=== PATIENT | male | born 1965 | race Caucasian/White ===

== ENCOUNTER 2018-12-26 10:27 | Emergency (ER) | payer MEDICARE, MEDICAID ==
[~2018-12-26] VITALS: Ht 162.6 cm; Wt 59.0 kg
[2018-12-26 11:42] LABS: Basophils # (auto) 0 uL; Basophils % (auto) 0.5 % (0.0-2.0); Eosinophils # (auto) 0 uL; Eosinophils % (auto) 0.9 % (0.0-7.0); Hematocrit 33.9 % (41.0-53.0); Hemoglobin 11.4 g/dL (13.5-17.5); Lymphocytes # (auto) 1.8 uL; Mean Corpuscular Hemoglobin 30.5 pg (28.0-32.0); Mean Corpuscular Hgb Conc. 33.6 g/dL (32.0-36.0); Mean Corpuscular Volume 90.7 fL (80.0-100.0); Monocytes # (auto) 0.4 uL; Monocytes % (auto) 7.8 % (0.0-12.0); Neutrophils # (auto) 2.4 uL; Neutrophils % (auto) 51.8 % (37.0-80.0); Nucleated Red Blood Cells % 0.1 %; Platelet Count (auto) 281 10^3/uL (140-450); Red Blood Cells 3.73 10^6/uL (4.5-5.90); Red Cell Distribution Width 16.8 % (11.8-14.3); White Blood Cell 4.6 10^3/uL (4.4-10.8)
[2018-12-26 11:43] LABS: Albumin 3.2 g/dL (3.4-5.0); Anion Gap 8 (5-15); Blood Urea Nitrogen 18 mg/dL (7-18); Calcium 8.2 mg/dL (8.5-10.1); Carbon Dioxide 26 mmol/L (21-32); Chloride 110 mmol/L (98-107); Glucose 88 mg/dL (74-106); Magnesium 2.2 mg/dL (1.6-2.6); Potassium 3.5 mmol/L (3.5-5.1); Sodium 144 mmol/L (136-145)
[2018-12-26 11:48] LABS: Alanine Aminotransferase 17 U/L (16-61); Alkaline Phosphatase 140 U/L (45-117); Aspartate Aminotransferase 19 U/L (15-37); BUN/Creatinine Ratio 24.7; Bilirubin, Total 0.2 mg/dL (0.2-1.0); GFR African American 144 mL/min; GFR Non-African American 119 mL/min; Total Protein 7.3 g/dL (6.4-8.2)
[2018-12-26 12:54] VITALS: BP 132/77
== END 2018-12-26 18:15 | disposition home or self-care (01) ==
LOC: EDBD 10:27 → ER 10:27
DX: I95.9 Hypotension, unspecified (principal); J44.9 Chronic obstructive pulmonary disease, unspecified; I10 Essential (primary) hypertension; Z90.49 Acquired absence of other specified parts of digestive tract
CPT/HCPCS: 36415; 70450; 80053; 83735; 84484; 85025; 94761

== ENCOUNTER 2020-01-21 05:12 | Inpatient (IN) | payer MEDICARE, MEDICAID ==
[~2020-01-21] VITALS: Ht 162.6 cm; Wt 62.0 kg
[2020-01-21 06:51] LABS: Basophils # (auto) 0.1 10 ^3/uL (0-0.2); Basophils % (auto) 0.5 % (0.0-2.0); Eosinophils # (auto) 0.1 10 ^3/uL (0-0.8); Monocytes # (auto) 0.7 10 ^3/uL (0-1.3); Monocytes % (auto) 5.8 % (0.0-12.0)
[2020-01-21 06:52] LABS: Eosinophils % (auto) 0.4 % (0.0-7.0); Hematocrit 36.6 % (41.0-53.0); Hemoglobin 12.3 g/dL (13.5-17.5); Lymphocytes % (auto) 24.1 % (10.0-50.0); Mean Corpuscular Hemoglobin 32.1 pg (28.0-32.0); Mean Corpuscular Hgb Conc. 33.5 g/dL (32.0-36.0); Mean Corpuscular Volume 95.7 fL (80.0-100.0); Neutrophils # (auto) 8.6 10 ^3/uL (1.6-8.6); Neutrophils % (auto) 69.2 % (37.0-80.0); Platelet Count (auto) 498 10^3/uL (140-450); Red Blood Cells 3.83 10^6/uL (4.5-5.90); Red Cell Distribution Width 14.7 % (11.8-14.3); White Blood Cell 12.5 10^3/uL (4.4-10.8)
[2020-01-21 07:15] LABS: Albumin 3.1 g/dL (3.4-5.0); Amylase 54 U/L (25-115); Anion Gap 5 (5-15); Blood Urea Nitrogen 24 mg/dL (7-18); Calcium 8.4 mg/dL (8.5-10.1); Carbon Dioxide 27 mmol/L (21-32); Chloride 105 mmol/L (98-107); Glucose 108 mg/dL (74-106); Lipase 81 U/L (73-393); Sodium 137 mmol/L (136-145)
[2020-01-21 07:21] LABS: Alanine Aminotransferase 18 U/L (16-61); Alkaline Phosphatase 103 U/L (45-117); Aspartate Aminotransferase 16 U/L (15-37); BUN/Creatinine Ratio 31.6; Bilirubin, Total 0.5 mg/dL (0.2-1.0); GFR African American 137 mL/min; GFR Non-African American 113 mL/min; Total Protein 7.5 g/dL (6.4-8.2)
[2020-01-21] MEDS ORDERED: cefTRIAXone 1GM/50ML D5W 50 ML IV ONE (11:00)
[2020-01-21 11:32] LABS: Urine Bacteria FEW /hpf (None Seen); Urine Blood 2+ /uL (Negative); Urine Mucus FEW (None Seen); Urine Specific Gravity 1.014 (1.001-1.035); Urine WBC 234 /hpf (0 - 3); Urine WBC Clumps PRESENT /hpf (None Seen)
[2020-01-21] MEDS ORDERED: ACETAMINOPHEN 500 MG TAB PO PRN (12:15)
[2020-01-21] MEDS ORDERED: NITROGLYCERIN 0.4 MG SL TAB SL PRN (12:15)
[2020-01-21] MEDS ORDERED: ALPRAZolam 0.25 MG TAB PO PRN (12:15)
[2020-01-21] MEDS ORDERED: MORPHINE SULF INJ 2 MG/ML SYRINGE 1ML IV PRN (12:15)
[2020-01-21] MEDS ORDERED: HYDROcodone-ACET 5/325MG TAB PO PRN (12:15)
[2020-01-21] MEDS: SODIUM CHLORIDE 0.9% 1,000 ML IV SCH (12:23)
[2020-01-21 12:40] LABS: Alcohol, Urine < 3.0 mg/dL (0-10); Amphetamine Screen, Urine NEGATIVE (NEGATIVE); Barbiturate Scree,Urine NEGATIVE (NEGATIVE); Benzodiazephine Screen, Urine NEGATIVE (NEGATIVE); Cannabinoid Screen, Urine NEGATIVE (NEGATIVE); Cocaine Screen, Urine NEGATIVE (NEGATIVE); Opiate Scree,Urine NEGATIVE (NEGATIVE); Phencyclidine Screen, Urine NEGATIVE (NEGATIVE)
[2020-01-21] MEDS: ONDANSETRON HCL 4 MG/2 ML VIAL IV PRN ×2 (13:37→19:57)
--- NOTE | 2020-01-21 18:23 | NUR ---
MS admit from [facility] admitted to tele/MS after SBAR received. Patient oriented to ROBBIE AMBRIZ RN primary RN, TELE unit, room 274, bed A, and unit policies regarding patient care and visiting hours. Patient weighed by bedscale and encouraged to call if they need something. All questions and concerns addressed, patient verbalized understanding.
[2020-01-21] MEDS ORDERED: ALPR1TAB7 (18:55)
[2020-01-21] MEDS ORDERED: BUPR2SUB (18:55)
[2020-01-21] MEDS: PIPERACILLIN-TAZOB 3.375GM 100 ML IV SCH (18:58)
[2020-01-21] MEDS ORDERED: PNEUMOCOCCAL VACC POLYS 25 MCG/0.5 ML VIAL IM ONE (19:00)
--- NOTE | 2020-01-21 19:09 | NUR ---
CARE ENDORSED TO ALE SYED.
--- NOTE | 2020-01-21 20:00 | NUR ---
open note assumed care of pt. upon entering room pt sitting at bedside awake, alert and oriented x4. room air no distress noted or expressed. pt denied any pain. pt updated on plan of care. pt reports having "chronic nausea", requesting medication, this nurse to admin meds per MD and MAR. pt bed locked, low and 2x rails up. call light in reach. this nurse to round q1hr and prn. pt has chronic urostomy which he cares for.
[2020-01-21 22:00] VITALS: BP 146/87
[2020-01-22] MEDS: PIPERACILLIN-TAZOB 3.375GM 100 ML IV SCH ×4 (03:34→17:52)
[2020-01-22 05:00] VITALS: BP 113/69
[2020-01-22] MEDS: SODIUM CHLORIDE 0.9% 1,000 ML IV SCH ×2 (05:06→21:29)
[2020-01-22 06:14] LABS: Basophils # (auto) 0.1 10 ^3/uL (0-0.2); Basophils % (auto) 0.6 % (0.0-2.0); Eosinophils # (auto) 0.1 10 ^3/uL (0-0.8); Eosinophils % (auto) 0.9 % (0.0-7.0); Hematocrit 41.8 % (41.0-53.0); Hemoglobin 13.9 g/dL (13.5-17.5); Lymphocytes # (auto) 3.5 10 ^3/uL (0.4-5.4); Lymphocytes % (auto) 33.7 % (10.0-50.0); Mean Corpuscular Hemoglobin 32.1 pg (28.0-32.0); Mean Corpuscular Hgb Conc. 33.3 g/dL (32.0-36.0); Mean Corpuscular Volume 96.3 fL (80.0-100.0); Monocytes # (auto) 0.6 10 ^3/uL (0-1.3); Monocytes % (auto) 6.2 % (0.0-12.0); Neutrophils # (auto) 6.1 10 ^3/uL (1.6-8.6); Neutrophils % (auto) 58.6 % (37.0-80.0); Platelet Count (auto) 444 10^3/uL (140-450); Red Blood Cells 4.34 10^6/uL (4.5-5.90); Red Cell Distribution Width 14.9 % (11.8-14.3); White Blood Cell 10.4 10^3/uL (4.4-10.8)
[2020-01-22 06:35] LABS: Potassium 4.5 mmol/L (3.5-5.1)
[2020-01-22] MEDS: ONDANSETRON HCL 4 MG/2 ML VIAL IV PRN ×3 (06:37→21:45)
[2020-01-22 06:50] LABS: BUN/Creatinine Ratio 26.8; Calcium 8.5 mg/dL (8.5-10.1)
--- NOTE | 2020-01-22 07:30 | NUR ---
Opening Shift Note RECEIVED REPORT FROM NOC RN. Assumed care of patient, awake and alert. No S/S of distress/SOB or pain. BED IN LOWEST, LOCKED POSITION WITH SIDERAILS UP x2 AND CALL LIGHT WITHIN REACH. Instructed on POC and to call for assist PRN, will continue to monitor for changes Q1hr and PRN.
[2020-01-22 09:23] VITALS: BP 123/91
--- NOTE | 2020-01-22 10:00 | NUR ---
IV removal IV DC'd with clean sterile technique, catheter fully intact. Pressure dressing applied to site. Patient tolerated well. NOTE: PATIENT HAD DISLODGED IV TO RIGHT WRIST/HAND.
[2020-01-22 10:13] LABS: INR 1.01 (0.9-1.15)
[2020-01-22] MEDS: FAMOTIDINE 20 MG TAB PO SCH (10:26)
--- NOTE | 2020-01-22 11:23 | NUR ---
MIDLINE ORDERED BY DR. ROBERTS.
--- NOTE | 2020-01-22 11:25 | NUR ---
ENGINE DYNAMOMETER TESTER ADVISED OF MIDLINE ORDER BY CHARGE NURSE CARL.
[2020-01-22 13:00] VITALS: BP 126/80
--- NOTE | 2020-01-22 14:49 | NUR ---
ATTEMPTED TO CALL PICC LINE NURSE REGARDING MIDLINE PLACEMENT. NO ANSWER.
[2020-01-22 16:52] VITALS: BP 120/74
[2020-01-22] MEDS: MORPHINE SULF INJ 2 MG/ML SYRINGE 1ML IV PRN ×2 (17:53→21:45)
--- NOTE | 2020-01-22 19:30 | NUR ---
Opening Shift Note Assumed care of patient. Patient is awake and alert. No S/S of distress/SOB or pain. Instructed on POC and to call for assist PRN, will continue to monitor for changes Q1hr and PRN. Bed locked in lowest position and bed rails up x2. Call light within reach. Addendum: 01/23/20 at 0056 by DESTINY ARITA RN Urostomy present. Clean, dry, intact, closed system free of kinks and below level of bladder
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
[2020-01-22 22:00] VITALS: BP 129/83
[2020-01-23] MEDS: PIPERACILLIN-TAZOB 3.375GM 100 ML IV SCH ×3 (00:47→12:13)
[2020-01-23 05:00] VITALS: BP 106/76
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
--- NOTE | 2020-01-23 07:30 | NUR ---
Opening Shift Note RECEIVED REPORT FROM NOC RN. Assumed care of patient, awake and alert. No S/S of distress/SOB or pain. BED IN LOWEST, LOCKED POSITION WITH SIDE RAILS UP x2 AND CALL LIGHT WITHIN REACH. Instructed on POC,to keep NPO for expected procedure,call light within reach patient reminded instructed to call for assistance.patient verbalized understanding.will continue to monitor for changes Q1hr and PRN.
[2020-01-23 08:48] VITALS: BP 114/76
--- NOTE | 2020-01-23 08:50 | NUR ---
Patient transported to [facility] via bed,for Nephrostomy Tube insertion.
[2020-01-23] MEDS ORDERED: LIDOCAINE 2%HCL (LOCAL ANESTH.) INJ 20ML MDV ONE (09:19)
[2020-01-23] MEDS ORDERED: IODIXANOL 320MG/ML 100ML BTL IV ONE (09:19)
[2020-01-23] MEDS ORDERED: fentaNYL CITRATE 100 MCG/2 ML VL ONE (09:20)
[2020-01-23] MEDS ORDERED: MIDAZOLAM HCL 1MG/1ML-2 ML VIAL ONE (09:20)
[2020-01-23] MEDS ORDERED: ONDANSETRON HCL 4 MG/2 ML VIAL ONE (09:28)
[2020-01-23] MEDS ORDERED: diphenhdrAMINE HCL 50 MG/1 ML VL ONE (09:29)
[2020-01-23] MEDS ORDERED: HYDROmorphone HCL 2 MG/ML VL ONE (09:47)
--- NOTE | 2020-01-23 11:30 | NUR ---
RECEIVED REPORT FROM JAYLIN MIXER CRANE OPERATOR RE PATIENT STATUS AND PLAN OF CARE
--- NOTE | 2020-01-23 11:55 | NUR ---
RECEIVED FROM PACU VIA BED AWAKE ALERT ORIENTED NO DISTRESS,NO DISCOMFORT.RIGHT NEPHROSTOMY TUBE TO RIGHT LOWER BACK IN PLACE,DRAINING BRIGHT TINGE BLOODY URINE DRAINAGE ,CATHETER ANCHORED AND DRESSING CLEAN DRY INTACT. PATIENT INSTRUCTED TO REMAIN IN BED REST,NO C/O PAIN NO DISCOMFORT.VITAL SIGNS TAKEN HR 83,RR18,BP 146/97,O2 SAT ON ROOM AIR 95%
[2020-01-23] MEDS: FAMOTIDINE 20 MG TAB PO SCH (12:11)
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
--- NOTE | 2020-01-23 13:08 | NUR ---
PATIENT REFUSED TO SIGN LEAVING THE HOSPITAL AGAINST MEDICAL ADVICE OR TREATMENT,EXPLAIN ABOUT THE RISK AND CONSEQUENCES INVOLVED IN LEAVING THE HOSPITAL A T THIS TIME,THE BENEFITS OF CONTINUED TREATMENT AND HOSPITALIZATION,PATIENT STATED AND CONTINUES TO BE DELUSIONAL "I'M LEAVING,GOD WILL REMOVED THE BLOOD,I'M AN KELVIN" PATIENT LEFT AMBULATORY WITH BELONGINGS, AGAINST MEDICAL ADVICE.
--- NOTE | 2020-01-23 13:10 | NUR ---
DR. ROBERTS PAGED AND INFORMED PATIENT BEING DELUSIONAL,ARGUMENTATIVE,REFUSING TO SIGN AMA FORM AND LEFT AGAINST MEDICAL ADVICE.
[2020-01-23] MEDS ORDERED: HALOPERIDOL LACTATE 5 MG/ML INJ VIAL IM PRN (13:15)
--- NOTE | 2020-01-23 13:30 | NUR ---
Patient Left AMA prior to assessment.
== END 2020-01-23 13:00 | disposition left against medical advice (07) | DRG 690 ==
LOC: ER 05:12 → TELE 05:13 → TELE-WESTW 18:15
PROVIDERS: ADMIT Nurse Practitioner Acute Care; ATTEND Internal Medicine
PROC: 0T9030Z Drainage of Right Kidney with Drainage Device, Percutaneous Approach (ICD-10-PCS; principal; 2020-01-23)
DX: N13.6 Pyonephrosis (principal); E44.1 Mild protein-calorie malnutrition; F17.200 Nicotine dependence, unspecified, uncomplicated; G89.29 Other chronic pain; J44.9 Chronic obstructive pulmonary disease, unspecified; R56.9 Unspecified convulsions; Z53.29 Procedure and treatment not carried out because of patient's decision for other reasons; Z95.810 Presence of automatic (implantable) cardiac defibrillator; Z88.6 Allergy status to analgesic agent; Z88.8 Allergy status to other drugs, medicaments and biological substances; Z90.49 Acquired absence of other specified parts of digestive tract; Z59.0 Homelessness; I50.9 Heart failure, unspecified; I11.0 Hypertensive heart disease with heart failure
CPT/HCPCS: 36415; 50432; 71045; 74176; 74425; 76000; 76942; 80048; 80053; 80307; 81001; 82150; 83690; 83880; 84484; 85025; 85610; 87040; 87086; 87088; 87186; 93005; 99152; 99153; C1729; G0378; J0696; J2250; J2405; J2543; Q9967

== ENCOUNTER 2020-01-23 17:18 | Emergency (ER) | payer MEDICARE, MEDICAID ==
[~2020-01-23] VITALS: Ht 162.6 cm; Wt 63.5 kg
[~2020-01-23 17:18] MED LIST: ALPR1TAB7; BUPR2SUB
[2020-01-23 18:07] VITALS: BP 112/85
== END 2020-01-23 19:45 | disposition left against medical advice (07) ==
LOC: ER 17:18
DX: R51 Headache (principal); Z53.21 Procedure and treatment not carried out due to patient leaving prior to being seen by health care provider

== ENCOUNTER → 2020-01-30 | Emergency (ER) | payer MEDICARE, MEDICAID ==
[~2020-01-30] VITALS: Ht 177.8 cm; Wt 63.5 kg
[2020-01-30 08:28] VITALS: BP 128/79
[2020-01-30 08:29] LABS: Basophils # (auto) 0 10 ^3/uL (0-0.2); Basophils % (auto) 0.5 % (0.0-2.0); Eosinophils # (auto) 0.1 10 ^3/uL (0-0.8); Hematocrit 33.3 % (41.0-53.0); Lymphocytes # (auto) 2.8 10 ^3/uL (0.4-5.4); Lymphocytes % (auto) 37.4 % (10.0-50.0); Mean Corpuscular Hemoglobin 31.9 pg (28.0-32.0); Mean Corpuscular Hgb Conc. 33.1 g/dL (32.0-36.0); Mean Corpuscular Volume 96.6 fL (80.0-100.0); Monocytes # (auto) 0.4 10 ^3/uL (0-1.3); Monocytes % (auto) 5.7 % (0.0-12.0); Neutrophils # (auto) 4.2 10 ^3/uL (1.6-8.6); Neutrophils % (auto) 55.4 % (37.0-80.0); Nucleated Red Blood Cells % 0.1 %; Platelet Count (auto) 331 10^3/uL (140-450); Red Blood Cells 3.45 10^6/uL (4.5-5.90); Red Cell Distribution Width 14.7 % (11.8-14.3); White Blood Cell 7.6 10^3/uL (4.4-10.8)
[2020-01-30 08:46] LABS: Albumin 2.9 g/dL (3.4-5.0); Anion Gap 7 (5-15); Blood Alcohol < 3.0 mg/dL (0-5); Blood Urea Nitrogen 20 mg/dL (7-18); Carbon Dioxide 27 mmol/L (21-32); Chloride 105 mmol/L (98-107); Glucose 98 mg/dL (74-106); Potassium 4.2 mmol/L (3.5-5.1); Sodium 139 mmol/L (136-145)
[2020-01-30 08:49] LABS: Alanine Aminotransferase 17 U/L (16-61); Alkaline Phosphatase 78 U/L (45-117); Aspartate Aminotransferase 19 U/L (15-37); BUN/Creatinine Ratio 20.8; Bilirubin, Total 0.2 mg/dL (0.2-1.0); GFR African American 105 mL/min; GFR Non-African American 86 mL/min; Total Protein 7.2 g/dL (6.4-8.2)
[2020-01-30 08:51] LABS: Salicylate < 1.7 mg/dL (2.8-20.0)
[2020-01-30 09:23] LABS: Acetaminophen < 2.0 ug/mL (10-30)
== END | disposition left against medical advice (07) ==
LOC: EDUNIT# 07:58 → EDBD 08:07 → ER 08:07
DX: R45.851 Suicidal ideations (principal); R42 Dizziness and giddiness; J44.9 Chronic obstructive pulmonary disease, unspecified; I10 Essential (primary) hypertension; Z88.6 Allergy status to analgesic agent; Z90.49 Acquired absence of other specified parts of digestive tract; Z95.0 Presence of cardiac pacemaker
CPT/HCPCS: 36415; 71045; 80053; 80320; 80329; 85025

== ENCOUNTER → 2020-02-03 | Emergency (ER) | payer MEDICARE, MEDICAID ==
[~2020-02-03] VITALS: Ht 172.7 cm; Wt 68.0 kg
[2020-02-03 06:49] VITALS: BP 142/85
[2020-02-03 07:28] LABS: Basophils # (auto) 0.1 10 ^3/uL (0-0.2); Basophils % (auto) 0.9 % (0.0-2.0); Eosinophils # (auto) 0.2 10 ^3/uL (0-0.8); Eosinophils % (auto) 2.2 % (0.0-7.0); Hematocrit 33.7 % (41.0-53.0); Hemoglobin 11.2 g/dL (13.5-17.5); Lymphocytes # (auto) 2.6 10 ^3/uL (0.4-5.4); Lymphocytes % (auto) 38.1 % (10.0-50.0); Mean Corpuscular Hemoglobin 32.6 pg (28.0-32.0); Mean Corpuscular Hgb Conc. 33.4 g/dL (32.0-36.0); Mean Corpuscular Volume 97.5 fL (80.0-100.0); Monocytes # (auto) 0.3 10 ^3/uL (0-1.3); Monocytes % (auto) 5.1 % (0.0-12.0); Neutrophils # (auto) 3.6 10 ^3/uL (1.6-8.6); Neutrophils % (auto) 53.7 % (37.0-80.0); Nucleated Red Blood Cells % 0.1 %; Platelet Count (auto) 394 10^3/uL (140-450); Red Blood Cells 3.45 10^6/uL (4.5-5.90); Red Cell Distribution Width 15.2 % (11.8-14.3); White Blood Cell 6.8 10^3/uL (4.4-10.8)
[2020-02-03 07:49] LABS: Acetaminophen < 2.0 ug/mL (10-30); Salicylate < 1.7 mg/dL (2.8-20.0)
[2020-02-03 07:50] LABS: Alanine Aminotransferase 20 U/L (16-61); Albumin 2.9 g/dL (3.4-5.0); Anion Gap 2 (5-15); Aspartate Aminotransferase 22 U/L (15-37); BUN/Creatinine Ratio 20.8; Blood Urea Nitrogen 15 mg/dL (7-18); Carbon Dioxide 28 mmol/L (21-32); Chloride 110 mmol/L (98-107); GFR African American 146 mL/min; GFR Non-African American 120 mL/min; Glucose 91 mg/dL (74-106); Potassium 3.7 mmol/L (3.5-5.1); Sodium 140 mmol/L (136-145)
[2020-02-03 07:52] LABS: Alkaline Phosphatase 89 U/L (45-117); Bilirubin, Total 0.2 mg/dL (0.2-1.0)
[2020-02-03 07:54] LABS: Blood Alcohol < 3.0 mg/dL (0-5)
[2020-02-03 08:35] LABS: Urine Bacteria FEW /hpf (None Seen); Urine Blood 2+ /uL (Negative); Urine Specific Gravity 1.015 (1.001-1.035); Urine WBC 136 /hpf (0 - 3)
[2020-02-03 08:44] LABS: Barbiturate Scree,Urine NEGATIVE (NEGATIVE); Benzodiazephine Screen, Urine NEGATIVE (NEGATIVE); Cannabinoid Screen, Urine NEGATIVE (NEGATIVE); Cocaine Screen, Urine NEGATIVE (NEGATIVE); Opiate Scree,Urine NEGATIVE (NEGATIVE); Phencyclidine Screen, Urine NEGATIVE (NEGATIVE)
[2020-02-03 08:50] LABS: Amphetamine Screen, Urine NEGATIVE (NEGATIVE)
[2020-02-03 08:55] LABS: Alcohol, Urine < 3.0 mg/dL (0-10)
== END | disposition home or self-care (01) ==
LOC: ER 02:18
DX: R45.851 Suicidal ideations (principal); F41.9 Anxiety disorder, unspecified; J44.9 Chronic obstructive pulmonary disease, unspecified; I10 Essential (primary) hypertension
CPT/HCPCS: 36415; 71045; 80053; 80307; 80320; 80329; 81001; 85025

== ENCOUNTER 2021-10-07 10:17 | Outpatient (CLI) | payer MEDICARE, MEDICAID ==
[~2021-10-07] VITALS: Ht 162.6 cm; Wt 59.0 kg
[2021-10-07 11:08] LABS: Urine Bacteria NONE SEEN /hpf (None Seen); Urine Blood Negative /uL (Negative); Urine Specific Gravity 1.014 (1.001-1.035); Urine WBC 123 /hpf (0 - 3)
[2021-10-07 11:27] LABS: Albumin 3.8 g/dL (3.4-5.0); Calcium 8.9 mg/dL (8.5-10.1); Potassium 4.5 mmol/L (3.5-5.1)
[2021-10-07 11:30] LABS: Basophils # (auto) 0 10 ^3/uL (0-0.2); Basophils % (auto) 0.5 % (0.0-2.0); Eosinophils # (auto) 0.2 10 ^3/uL (0-0.8); Eosinophils % (auto) 2.4 % (0.0-7.0); Hematocrit 39.9 % (41.0-53.0); Hemoglobin 13.3 g/dL (13.5-17.5); Lymphocytes # (auto) 1.8 10 ^3/uL (0.4-5.4); Mean Corpuscular Hemoglobin 32.8 pg (28.0-32.0); Mean Corpuscular Hgb Conc. 33.4 g/dL (32.0-36.0); Mean Corpuscular Volume 98.2 fL (80.0-100.0); Monocytes # (auto) 0.5 10 ^3/uL (0-1.3); Monocytes % (auto) 6.2 % (0.0-12.0); Neutrophils # (auto) 4.9 10 ^3/uL (1.6-8.6); Neutrophils % (auto) 65.9 % (37.0-80.0); Nucleated Red Blood Cells % 0.2 %; Red Blood Cells 4.06 10^6/uL (4.5-5.90); Red Cell Distribution Width 13.4 % (11.8-14.3); White Blood Cell 7.4 10^3/uL (4.4-10.8)
[2021-10-07 11:31] LABS: BUN/Creatinine Ratio 19.6; Bilirubin, Total 0.2 mg/dL (0.2-1.0); Total Protein 7.6 g/dL (6.4-8.2)
[2021-10-08] MEDS ORDERED: MORP15TA PO (16:02)
[2021-10-08] MEDS ORDERED: ZOLP10TA PO (16:03)
[2021-10-08] MEDS ORDERED: METH100I IJ (16:03)
[2021-10-08] MEDS ORDERED: SERT50TA PO (16:03)
[2021-10-08] MEDS ORDERED: SOTA80TA PO (16:03)
[2021-10-08] MEDS ORDERED: PROC10TA2 PO (16:03)
[2021-10-08] MEDS ORDERED: CHLO100T4 PO (16:03)
[2021-10-08] MEDS ORDERED: LINA1CAP2 PO (16:03)
[2021-10-08] MEDS ORDERED: CARB200T PO (16:03)
[2021-10-08] MEDS ORDERED: MELO1TAB56 PO (16:03)
[2021-10-08] MEDS ORDERED: PANT40TA2 PO (16:03)
[2021-10-08] MEDS ORDERED: ALPR0.5T PO (16:03)
[2021-10-08] MEDS ORDERED: LEVO25TA49 PO (16:03)
[2021-10-08] MEDS ORDERED: PRAZ2CAP PO (16:03)
[2021-10-08] MEDS ORDERED: ONDA-144 PO (16:03)
[2021-10-08] MEDS ORDERED: METH750T22 PO (16:03)
[2021-11-03] MEDS ORDERED: FLUT1AER3 IN (10:33)
[2021-11-03] MEDS ORDERED: ASPI1TAB20 PO (10:33)
[2021-11-03] MEDS ORDERED: PROM25TA5 PO (10:33)
== END 2021-10-07 13:17 | disposition home or self-care (01) ==
LOC: LAB 10:17 → EDSTATUS 10-09 12:15
PROVIDERS: ATTEND Internal Medicine Gastroenterology
DX: Z01.812 Encounter for preprocedural laboratory examination (principal); K92.1 Melena; R11.2 Nausea with vomiting, unspecified; Z20.822 Contact with and (suspected) exposure to COVID-19; Z80.0 Family history of malignant neoplasm of digestive organs; I10 Essential (primary) hypertension; Z95.0 Presence of cardiac pacemaker; F17.200 Nicotine dependence, unspecified, uncomplicated; K21.9 Gastro-esophageal reflux disease without esophagitis; K44.9 Diaphragmatic hernia without obstruction or gangrene; E03.9 Hypothyroidism, unspecified; F41.9 Anxiety disorder, unspecified
CPT/HCPCS: 36415; 80053; 81001; 85025; U0003

== ENCOUNTER → 2021-11-06 | Day surgery (SDC) | payer MEDICARE, MEDICAID ==
[2021-11-03 11:02] LABS: Basophils # (auto) 0 10 ^3/uL (0-0.2); Basophils % (auto) 0.7 % (0.0-2.0); Eosinophils # (auto) 0.1 10 ^3/uL (0-0.8); Eosinophils % (auto) 1.9 % (0.0-7.0); Hematocrit 40.8 % (41.0-53.0); Hemoglobin 13.8 g/dL (13.5-17.5); Lymphocytes # (auto) 1.7 10 ^3/uL (0.4-5.4); Lymphocytes % (auto) 27.3 % (10.0-50.0); Mean Corpuscular Hemoglobin 32.9 pg (28.0-32.0); Mean Corpuscular Hgb Conc. 33.9 g/dL (32.0-36.0); Mean Corpuscular Volume 97.1 fL (80.0-100.0); Monocytes # (auto) 0.5 10 ^3/uL (0-1.3); Monocytes % (auto) 7.3 % (0.0-12.0); Neutrophils # (auto) 3.9 10 ^3/uL (1.6-8.6); Neutrophils % (auto) 62.8 % (37.0-80.0); Red Cell Distribution Width 13.7 % (11.8-14.3); White Blood Cell 6.2 10^3/uL (4.4-10.8)
[2021-11-03 11:06] LABS: Urine Bacteria MANY /hpf (None Seen); Urine Blood 1+ /uL (Negative); Urine Budding Yeast FEW /hpf (None Seen); Urine Mucus FEW (None Seen); Urine Specific Gravity 1.018 (1.001-1.035); Urine WBC 99 /hpf (0 - 3)
[2021-11-03 11:19] LABS: INR 1.01 (0.9-1.15); Partial Thromboplastin Time 29.4 sec (23.6-33.0)
[2021-11-03 12:07] LABS: Calcium 8.7 mg/dL (8.5-10.1); Potassium 4.3 mmol/L (3.5-5.1)
[2021-11-03 12:11] LABS: Bilirubin, Total 0.3 mg/dL (0.2-1.0); Total Protein 7.8 g/dL (6.4-8.2)
[~2021-11-06] VITALS: Ht 162.6 cm; Wt 59.0 kg
[~2021-11-06] MED LIST changes: -ALPR1TAB7; +ASPI1TAB20 PO; -BUPR2SUB; +CARB200T PO; +CHLO100T4 PO; +DexAMETHasone SOD PHOS 10MG/1ML VIAL INJ ONE; +FLUT1AER3 IN; +LEVO25TA49 PO; +LIDOCAINE VISCOUS 2% 15ML UD ONE; +LINA1CAP2 PO; +MELO1TAB56 PO; +METH100I IJ; +METH750T22 PO; +MIDAZOLAM HCL 2MG/2ML 2ml VIAL (1mg/ml) ONE; +MORP15TA PO; +ONDA-144 PO; +ONDANSETRON HCL 4 MG/2 ML VIAL ONE; +PANT40TA2 PO; +PRAZ2CAP PO; +PROC10TA2 PO; +PROM25TA5 PO; +PROPOFOL 10 MG/ML 20 ML IV ONE; +SERT50TA PO; +SODIUM CHLORIDE LOCK 10 ML ONE; +SOTA80TA PO; +ZOLP10TA PO; +fentaNYL CITRATE 100 MCG/2 ML VL IV ONE
[2021-11-06 13:30] VITALS: BP 115/63
== END | disposition home or self-care (01) ==
LOC: GI 09:02
PROVIDERS: ATTEND Internal Medicine Gastroenterology
DX: K92.1 Melena (principal); K29.50 Unspecified chronic gastritis without bleeding; K64.8 Other hemorrhoids; I10 Essential (primary) hypertension; F41.9 Anxiety disorder, unspecified; J43.9 Emphysema, unspecified; K21.9 Gastro-esophageal reflux disease without esophagitis; G89.29 Other chronic pain; F20.9 Schizophrenia, unspecified; Z80.0 Family history of malignant neoplasm of digestive organs; Z95.0 Presence of cardiac pacemaker; Z98.890 Other specified postprocedural states; Z79.899 Other long term (current) drug therapy; Z88.1 Allergy status to other antibiotic agents; Z88.6 Allergy status to analgesic agent; Z87.891 Personal history of nicotine dependence; Z20.822 Contact with and (suspected) exposure to COVID-19
CPT/HCPCS: 36415; 43239; 45378; 80053; 81001; 85025; 85610; 85730; 88305; 88342; J1100; J2250; J2405; J2704; J3010; J7030; U0003; 99153; G0500

== ENCOUNTER 2022-02-06 06:14 | Day surgery (SDC) | payer MEDICARE, MEDICAID ==
[2022-01-30 10:02] LABS: Urine Bacteria FEW /hpf (None Seen); Urine Blood 2+ /uL (Negative); Urine Budding Yeast FEW /hpf (None Seen); Urine Mucus FEW (None Seen); Urine WBC 519 /hpf (0 - 3)
[2022-01-30 10:09] LABS: Basophils # (auto) 0.2 10 ^3/uL (0-0.2); Basophils % (auto) 3.2 % (0.0-2.0); Eosinophils # (auto) 0.1 10 ^3/uL (0-0.8); Eosinophils % (auto) 1.9 % (0.0-7.0); Hematocrit 43.5 % (41.0-53.0); Lymphocytes % (auto) 27.1 % (10.0-50.0); Mean Corpuscular Hemoglobin 33.8 pg (28.0-32.0); Mean Corpuscular Hgb Conc. 34.4 g/dL (32.0-36.0); Mean Corpuscular Volume 98.4 fL (80.0-100.0); Monocytes # (auto) 0.4 10 ^3/uL (0-1.3); Monocytes % (auto) 5.1 % (0.0-12.0); Neutrophils # (auto) 4.6 10 ^3/uL (1.6-8.6); Neutrophils % (auto) 62.7 % (37.0-80.0); Nucleated Red Blood Cells % 0.1 %; Red Blood Cells 4.43 10^6/uL (4.5-5.90); Red Cell Distribution Width 13.4 % (11.8-14.3); White Blood Cell 7.4 10^3/uL (4.4-10.8)
[2022-01-30 10:20] LABS: Partial Thromboplastin Time 29.5 sec (23.6-33.0)
[2022-01-30 10:41] LABS: Calcium 8.6 mg/dL (8.5-10.1)
[2022-01-30 10:45] LABS: BUN/Creatinine Ratio 19.6; Bilirubin, Total 0.3 mg/dL (0.2-1.0); Total Protein 8.2 g/dL (6.4-8.2)
[~2022-02-06] VITALS: Ht 162.6 cm; Wt 63.5 kg
[~2022-02-06 06:14] MED LIST changes: +CARB200C8 PO; -CARB200T PO; +CHOL1CAP PO; +DRON400T PO; -DexAMETHasone SOD PHOS 10MG/1ML VIAL INJ ONE; -LEVO25TA49 PO; +LEVO50CA3 PO; -LIDOCAINE VISCOUS 2% 15ML UD ONE; -LINA1CAP2 PO; +MAGN400T40 OR; -METH100I IJ; -MIDAZOLAM HCL 2MG/2ML 2ml VIAL (1mg/ml) ONE; -ONDANSETRON HCL 4 MG/2 ML VIAL ONE; +OYST500T28 PO; -PROC10TA2 PO; -PROPOFOL 10 MG/ML 20 ML IV ONE; +SENN-136 PO; +SERT-377 PO; -SERT50TA PO; -SODIUM CHLORIDE LOCK 10 ML ONE; -SOTA80TA PO; +VALB40CA2 PO; -fentaNYL CITRATE 100 MCG/2 ML VL IV ONE
[2022-02-06] MEDS ORDERED: ceFAZolin 1GM/50ML 100 ML IV ONE (06:28)
[2022-02-06] MEDS ORDERED: SUCCINYLCHOLINE CHLORIDE 20 MG/ML 10ML VIAL IV ONE (06:46)
[2022-02-06] MEDS ORDERED: HYDROmorphone HCL 2 MG/ML VL/or syr IV PRN ×2 (07:15)
[2022-02-06] MEDS ORDERED: MORPHINE SULFATE 4 MG/ML SYR/VIAL IV PRN (07:15)
[2022-02-06] MEDS ORDERED: METOCLOPRAMIDE HCL 5MG/ml INJ 2ml VIAL IV PRN (07:15)
[2022-02-06] MEDS ORDERED: BUPIVACAINE HCL 50 ML ONE (07:19)
[2022-02-06] MEDS ORDERED: LIDOCAINE 1%HCL (LOCAL ANESTH) 10 ML MDV ONE (07:19)
[2022-02-06] MEDS ORDERED: SODIUM CHLORIDE LOCK 10 ML ONE (07:41)
[2022-02-06] MEDS ORDERED: ONDANSETRON HCL 4 MG/2 ML VIAL ONE (07:41)
[2022-02-06] MEDS ORDERED: MIDAZOLAM HCL 2MG/2ML 2ml VIAL (1mg/ml) ONE (07:41)
[2022-02-06] MEDS ORDERED: fentaNYL CITRATE 100 MCG/2 ML VL ONE (07:41)
[2022-02-06] MEDS ORDERED: PROPOFOL 10 MG/ML 20 ML IV ONE (07:41)
[2022-02-06] MEDS ORDERED: CEPH500C PO (08:25)
[2022-02-06] MEDS ORDERED: LIDOCAINE 2% (LOCAL ANESTH.) PF 5ml SDV ONE (08:27)
[2022-02-06 10:00] VITALS: BP 131/89
== END 2022-02-06 10:00 | disposition home or self-care (01) ==
LOC: SUR 06:14
PROVIDERS: ATTEND Student in an Organized Health Care Education/Training Program
DX: M89.9 Disorder of bone, unspecified (principal); I10 Essential (primary) hypertension; F32.A Depression, unspecified; F41.9 Anxiety disorder, unspecified; G89.29 Other chronic pain; G40.909 Epilepsy, unspecified, not intractable, without status epilepticus; J44.9 Chronic obstructive pulmonary disease, unspecified; K21.9 Gastro-esophageal reflux disease without esophagitis; E03.9 Hypothyroidism, unspecified; Z95.0 Presence of cardiac pacemaker; Z98.890 Other specified postprocedural states; Z79.899 Other long term (current) drug therapy; Z88.6 Allergy status to analgesic agent; Z88.5 Allergy status to narcotic agent; Z87.891 Personal history of nicotine dependence; Z86.2 Personal history of diseases of the blood and blood-forming organs and certain disorders involving the immune mechanism; Z20.822 Contact with and (suspected) exposure to COVID-19
CPT/HCPCS: 28104; 36415; 73620; 73630; 76000; 80053; 81001; 85025; 85610; 85730; C1713; J0330; J0690; J2001; J2250; J2405; J2704; J3010; J3490; U0003

== ENCOUNTER 2022-06-01 16:39 | Emergency (ER) | payer MEDICARE, MEDICAID ==
[~2022-06-01] VITALS: Ht 170.2 cm; Wt 72.7 kg
[~2022-06-01 16:39] MED LIST changes: +CEPH500C PO
[2022-06-01 17:22] VITALS: BP 124/74
[2022-06-01 18:30] LABS: Albumin 3.5 g/dL (3.4-5.0); Calcium 8.7 mg/dL (8.5-10.1); Potassium 4.8 mmol/L (3.5-5.1)
[2022-06-01 18:33] LABS: BUN/Creatinine Ratio 16.7; Bilirubin, Total 0.2 mg/dL (0.2-1.0); Total Protein 8.2 g/dL (6.4-8.2)
[2022-06-01 18:41] LABS: Basophils # (auto) 0.1 10 ^3/uL (0-0.2); Basophils % (auto) 0.9 % (0.0-2.0); Eosinophils # (auto) 0.2 10 ^3/uL (0-0.8); Eosinophils % (auto) 2.2 % (0.0-7.0); Hematocrit 43.9 % (41.0-53.0); Hemoglobin 14.7 g/dL (13.5-17.5); Lymphocytes # (auto) 2.8 10 ^3/uL (0.4-5.4); Lymphocytes % (auto) 28.8 % (10.0-50.0); Mean Corpuscular Hemoglobin 33.4 pg (28.0-32.0); Mean Corpuscular Hgb Conc. 33.6 g/dL (32.0-36.0); Mean Corpuscular Volume 99.3 fL (80.0-100.0); Monocytes # (auto) 0.6 10 ^3/uL (0-1.3); Monocytes % (auto) 6.6 % (0.0-12.0); Neutrophils % (auto) 61.5 % (37.0-80.0); Nucleated Red Blood Cells % 0.1 %; Red Blood Cells 4.41 10^6/uL (4.5-5.90); Red Cell Distribution Width 13.5 % (11.8-14.3); White Blood Cell 9.8 10^3/uL (4.4-10.8)
== END 2022-06-01 22:59 | disposition left against medical advice (07) ==
LOC: ER 16:39 → EDUNIT# 16:39 → EDBD 16:39 → ER 22:59
DX: R11.2 Nausea with vomiting, unspecified (principal); R19.7 Diarrhea, unspecified; R07.89 Other chest pain; Z53.21 Procedure and treatment not carried out due to patient leaving prior to being seen by health care provider
CPT/HCPCS: 36415; 80053; 85025; 93005

== ENCOUNTER 2022-08-27 12:56 | Inpatient (IN) | payer MEDICARE, MEDICAID ==
[~2022-08-27] VITALS: Ht 170.2 cm; Wt 68.0 kg
[2022-08-27] MEDS ORDERED: KETOROLAC TROMETH 60MG/2ML VIAL IM ONE (14:30)
[2022-08-27 14:49] LABS: Basophils # (auto) 0.1 10 ^3/uL (0-0.2); Eosinophils # (auto) 0.2 10 ^3/uL (0-0.8); Eosinophils % (auto) 2.6 % (0.0-7.0); Hemoglobin 13.8 g/dL (13.5-17.5); Monocytes # (auto) 0.6 10 ^3/uL (0-1.3); Nucleated Red Blood Cells % 0.1 %
[2022-08-27 14:51] LABS: Lymphocytes # (auto) 2.3 10 ^3/uL (0.4-5.4); Lymphocytes % (auto) 28.3 % (10.0-50.0); Mean Corpuscular Hemoglobin 35.5 pg (28.0-32.0); Mean Corpuscular Hgb Conc. 36.3 g/dL (32.0-36.0); Mean Corpuscular Volume 97.6 fL (80.0-100.0); Monocytes % (auto) 7.4 % (0.0-12.0); Neutrophils % (auto) 60.7 % (37.0-80.0); White Blood Cell 8.3 10^3/uL (4.4-10.8)
[2022-08-27 15:09] LABS: Albumin 3.7 g/dL (3.4-5.0); BUN/Creatinine Ratio 21.2; Calcium 8.4 mg/dL (8.5-10.1); Potassium 4.5 mmol/L (3.5-5.1)
[2022-08-27 15:13] LABS: Bilirubin, Total 0.3 mg/dL (0.2-1.0); Total Protein 7.5 g/dL (6.4-8.2)
[2022-08-27 15:20] LABS: Urine Bacteria FEW /hpf (None Seen); Urine Blood Negative /uL (Negative); Urine Mucus FEW (None Seen); Urine WBC 97 /hpf (0 - 3)
[2022-08-27] MEDS ORDERED: SODIUM CHLORIDE 0.9% 1,000 ML IV ONE (15:45)
[2022-08-27] MEDS ORDERED: cefTRIAXone 1GM/50ML D5W 50 ML IV ONE (15:45)
[2022-08-27] MEDS ORDERED: ONDANSETRON HCL 4 MG/2 ML VIAL IV ONE (15:45)
[2022-08-27] MEDS ORDERED: MORPHINE SULFATE INJ 2 MG/ml SYRG IV ONE (15:45)
[2022-08-27] MEDS ORDERED: DOCUSATE SOD 100 MG CAP PO PRN (18:00)
[2022-08-27] MEDS ORDERED: ONDANSETRON HCL 4 MG/2 ML VIAL IV PRN (18:00)
[2022-08-27] MEDS: SODIUM CHLORIDE 0.9% 1,000 ML IV SCH (18:51)
[2022-08-27 22:00] VITALS: BP_SYST 138; BP_SYST 99; BP_DIAS 60; BP_DIAS 75
[2022-08-27] MEDS ORDERED: PRAZOSIN HCL 1 MG CAP PO SCH (22:00)
[2022-08-27] MEDS ORDERED: VALBENAZINE TOSYLATE 40 MG PO SCH (22:00)
[2022-08-27] MEDS: CARBAMAZEPINE 200 MG PO SCH (22:08)
[2022-08-27] MEDS: MAGNESIUM OXIDE 400 MG TAB PO SCH (22:09)
[2022-08-27] MEDS: DRONEDARONE HCL 400 MG TAB PO SCH (22:10)
[2022-08-27] MEDS: METHOCARBAMOL 500 MG TAB PO SCH (22:10)
[2022-08-27] MEDS: chlorproMAZINE HCL 25 MG TAB PO SCH (22:10)
[2022-08-27] MEDS: PANTOPRAZOLE 40 MG TAB PO SCH (22:10)
[2022-08-27] MEDS: MORPHINE SULFATE INJ 2 MG/ml SYRG IV PRN (22:11)
[2022-08-27 22:46] VITALS: BP 138/75
[2022-08-27] MEDS ORDERED: SUVO1TAB2 PO (23:14)
[2022-08-27] MEDS ORDERED: BUSP15TA60 PO (23:14)
[2022-08-28] MEDS: MORPHINE SULFATE INJ 2 MG/ml SYRG IV PRN ×3 (04:39→14:48)
[2022-08-28 05:00] VITALS: BP 113/68
[2022-08-28] MEDS: METHOCARBAMOL 500 MG TAB PO SCH ×2 (06:00→14:45)
[2022-08-28] MEDS: chlorproMAZINE HCL 25 MG TAB PO SCH ×2 (06:00→14:45)
[2022-08-28] MEDS ORDERED: LEVOTHYROXINE SODIUM 50 MCG TAB PO SCH (07:00)
[2022-08-28 07:57] LABS: Basophils # (auto) 0.1 10 ^3/uL (0-0.2); Eosinophils # (auto) 0.2 10 ^3/uL (0-0.8); Hemoglobin 12.6 g/dL (13.5-17.5); Monocytes # (auto) 0.5 10 ^3/uL (0-1.3); Neutrophils # (auto) 3.7 10 ^3/uL (1.6-8.6); Neutrophils % (auto) 58.4 % (37.0-80.0); Nucleated Red Blood Cells % 0.1 %; White Blood Cell 6.3 10^3/uL (4.4-10.8)
[2022-08-28 07:59] LABS: Basophils % (auto) 1.1 % (0.0-2.0); Eosinophils % (auto) 3.4 % (0.0-7.0); Lymphocytes # (auto) 1.9 10 ^3/uL (0.4-5.4); Lymphocytes % (auto) 29.6 % (10.0-50.0); Mean Corpuscular Hemoglobin 33.3 pg (28.0-32.0); Mean Corpuscular Hgb Conc. 33.2 g/dL (32.0-36.0); Mean Corpuscular Volume 100.3 fL (80.0-100.0); Monocytes % (auto) 7.5 % (0.0-12.0); Red Blood Cells 3.78 10^6/uL (4.5-5.90); Red Cell Distribution Width 14.3 % (11.8-14.3)
[2022-08-28 08:00] VITALS: BP 123/84
[2022-08-28 08:05] LABS: Calcium 7.6 mg/dL (8.5-10.1); Potassium 4.2 mmol/L (3.5-5.1)
[2022-08-28 08:09] LABS: Bilirubin, Total 0.3 mg/dL (0.2-1.0); Total Protein 6.1 g/dL (6.4-8.2)
[2022-08-28 08:59] VITALS: BP 105/72
[2022-08-28] MEDS ORDERED: cefTRIAXone 1GM/50ML D5W 50 ML IV SCH (09:00)
[2022-08-28] MEDS: MAGNESIUM OXIDE 400 MG TAB PO SCH (09:45)
[2022-08-28] MEDS: DRONEDARONE HCL 400 MG TAB PO SCH (09:45)
[2022-08-28] MEDS: PANTOPRAZOLE 40 MG TAB PO SCH (09:46)
[2022-08-28] MEDS ORDERED: TRELEGY ELLIPTA IN SCH (10:00)
[2022-08-28] MEDS ORDERED: CHOLECALCIFEROL (VITD3) 1,000UNIT=25mCg TAB PO SCH (10:00)
[2022-08-28] MEDS: CARBAMAZEPINE 200 MG PO SCH (10:00)
[2022-08-28] MEDS ORDERED: ENOXAPARIN SOD 40 MG/0.4 ML SYRINGE SC SCH (10:00)
[2022-08-28] MEDS ORDERED: SERTRALINE HCL 50 MG TAB PO SCH (10:00)
[2022-08-28] MEDS ORDERED: ASPirin-EC 81 mg tab PO SCH (10:00)
[2022-08-28] MEDS ORDERED: MELOXICAM 15 MG PO SCH (10:00)
[2022-08-28] MEDS: SODIUM CHLORIDE 0.9% 1,000 ML IV SCH (10:40)
[2022-08-28 13:09] VITALS: BP 134/77
[2022-08-28 16:57] VITALS: BP 118/79
== END 2022-08-28 16:30 | disposition left against medical advice (07) | DRG 690 ==
LOC: ER 12:56 → EDBD 12:56 → TELE 18:01 → WEST WING 21:35
PROVIDERS: ADMIT Nurse Practitioner Family; ATTEND Internal Medicine Geriatric Medicine
DX: N10 Acute pyelonephritis (principal); J98.11 Atelectasis; R45.851 Suicidal ideations; Z20.822 Contact with and (suspected) exposure to COVID-19; E03.9 Hypothyroidism, unspecified; E55.9 Vitamin D deficiency, unspecified; F09 Unspecified mental disorder due to known physiological condition; F15.11 Other stimulant abuse, in remission; F17.200 Nicotine dependence, unspecified, uncomplicated; Z96.642 Presence of left artificial hip joint; F41.9 Anxiety disorder, unspecified; G89.29 Other chronic pain; I10 Essential (primary) hypertension; I48.91 Unspecified atrial fibrillation; J43.9 Emphysema, unspecified; N20.0 Calculus of kidney; Z53.29 Procedure and treatment not carried out because of patient's decision for other reasons; Z88.8 Allergy status to other drugs, medicaments and biological substances; Z59.00 Homelessness unspecified; Z90.6 Acquired absence of other parts of urinary tract; Z88.6 Allergy status to analgesic agent; Z90.49 Acquired absence of other specified parts of digestive tract; Z93.6 Other artificial openings of urinary tract status
CPT/HCPCS: 36415; 74176; 80053; 81001; 85025; 87086; 87088; 87186; 87426; 96361; 96365; 96375; G0378; J0696; J2405; Q0161

== ENCOUNTER 2022-12-29 16:44 | Emergency (ER) | payer MEDICARE, MEDICAID ==
[~2022-12-29] VITALS: Ht 162.6 cm; Wt 68.2 kg
[~2022-12-29 16:44] MED LIST changes: +BUSP15TA60 PO; +SUVO1TAB2 PO
[2022-12-29 18:55] VITALS: BP 125/84
[2022-12-29] MEDS ORDERED: ACET-1158 PO (19:28)
[2022-12-29] MEDS ORDERED: AMOX-277 PO (19:28)
== END 2022-12-29 21:14 | disposition home or self-care (01) ==
LOC: ER 16:44
DX: S01.312A Laceration without foreign body of left ear, initial encounter (principal); J44.9 Chronic obstructive pulmonary disease, unspecified; I10 Essential (primary) hypertension; Z87.442 Personal history of urinary calculi; Z86.73 Personal history of transient ischemic attack (TIA), and cerebral infarction without residual deficits; Z88.1 Allergy status to other antibiotic agents; Z88.6 Allergy status to analgesic agent; Z88.8 Allergy status to other drugs, medicaments and biological substances; W22.8XXA Striking against or struck by other objects, initial encounter; Y93.89 Activity, other specified; Y92.89 Other specified places as the place of occurrence of the external cause; Y99.8 Other external cause status
CPT/HCPCS: 12013; 70450

== ENCOUNTER 2023-04-25 13:17 | Emergency (ER) | payer MEDICARE, MEDICAID ==
[~2023-04-25] VITALS: Ht 162.6 cm; Wt 67.4 kg
[~2023-04-25 13:17] MED LIST changes: +ACET500T58 PO; +AMOX875T4 PO; -CHLO100T4 PO; +CHLO100T8 PO; +MELO-335 PO; -MELO1TAB56 PO; +METH-1182 PO; -METH750T22 PO; +PROM25TA10 PO; -PROM25TA5 PO; -SENN-136 PO; +SENN1TAB91 PO
[2023-04-25 15:25] VITALS: TEMP 98; O2SAT 97
[2023-04-25 16:58] VITALS: BP 130/83; PULSE 85; RESP 18
[2023-04-25] MEDS ORDERED: MORPHINE SULFATE INJ 2 MG/ml SYRG IM ONE (17:00)
== END 2023-04-25 16:47 | disposition home or self-care (01) ==
LOC: ER 13:17
DX: S20.211A Contusion of right front wall of thorax, initial encounter (principal); I10 Essential (primary) hypertension; J44.9 Chronic obstructive pulmonary disease, unspecified; Z86.73 Personal history of transient ischemic attack (TIA), and cerebral infarction without residual deficits; Z90.49 Acquired absence of other specified parts of digestive tract; Z95.0 Presence of cardiac pacemaker; Z79.2 Long term (current) use of antibiotics; Z79.82 Long term (current) use of aspirin; Z79.899 Other long term (current) drug therapy; Z88.1 Allergy status to other antibiotic agents; Z88.8 Allergy status to other drugs, medicaments and biological substances; W01.0XXA Fall on same level from slipping, tripping and stumbling without subsequent striking against object, initial encounter; Y93.89 Activity, other specified; Y92.89 Other specified places as the place of occurrence of the external cause; Y99.8 Other external cause status
CPT/HCPCS: 71101; 96372; 99283; J2270

== ENCOUNTER 2023-05-05 11:37 | Emergency (ER) | payer MEDICARE, MEDICAID ==
[~2023-05-05] VITALS: Ht 162.6 cm; Wt 62.2 kg
[2023-05-05] MEDS ORDERED: HYDR-4902 PO (15:25)
[2023-05-05] MEDS ORDERED: HYDROcodone-ACET 5/325MG TAB PO ONE (15:30)
[2023-05-05 15:48] VITALS: BP 107/77; PULSE 69; RESP 18; TEMP 97.7; O2SAT 97
== END 2023-05-05 15:49 | disposition home or self-care (01) ==
LOC: ER 11:37
DX: S22.41XA Multiple fractures of ribs, right side, initial encounter for closed fracture (principal); I10 Essential (primary) hypertension; J44.9 Chronic obstructive pulmonary disease, unspecified; Z86.73 Personal history of transient ischemic attack (TIA), and cerebral infarction without residual deficits; Z90.49 Acquired absence of other specified parts of digestive tract; Z95.0 Presence of cardiac pacemaker; Z59.00 Homelessness unspecified; Z79.82 Long term (current) use of aspirin; Z79.2 Long term (current) use of antibiotics; Z79.899 Other long term (current) drug therapy; Z88.1 Allergy status to other antibiotic agents; Z88.8 Allergy status to other drugs, medicaments and biological substances; W18.39XA Other fall on same level, initial encounter; Y93.89 Activity, other specified; Y92.89 Other specified places as the place of occurrence of the external cause; Y99.8 Other external cause status
CPT/HCPCS: 71250; 93005

== ENCOUNTER 2023-08-14 13:21 | Emergency (ER) | payer MEDICARE, MEDICAID ==
[~2023-08-14] VITALS: Ht 162.6 cm; Wt 63.0 kg
[~2023-08-14 13:21] MED LIST changes: +HYDR-4902 PO
[2023-08-14 16:24] LABS: Basophils # (auto) 0 10 ^3/uL (0-0.2); Basophils % (auto) 0.6 % (0.0-2.0); Eosinophils # (auto) 0.1 10 ^3/uL (0-0.8); Eosinophils % (auto) 1.4 % (0.0-7.0); Hemoglobin 14.2 g/dL (13.5-17.5); Lymphocytes # (auto) 1.6 10 ^3/uL (0.4-5.4); Lymphocytes % (auto) 22.6 % (10.0-50.0); Monocytes # (auto) 0.4 10 ^3/uL (0-1.3); Monocytes % (auto) 5.5 % (0.0-12.0); Neutrophils # (auto) 4.8 10 ^3/uL (1.6-8.6); Neutrophils % (auto) 69.9 % (37.0-80.0); Nucleated Red Blood Cells % 0.1 %; Red Cell Distribution Width 13.9 % (11.8-14.3); White Blood Cell 6.9 10^3/uL (4.4-10.8)
[2023-08-14 16:33] LABS: Alanine Aminotransferase 12 U/L (7-40); Albumin 4.5 g/dL (3.2-4.8); Alkaline Phosphatase 66 U/L (46-116); Anion Gap 7 (5-15); Aspartate Aminotransferase 20 U/L (13-40); BUN/Creatinine Ratio 11.1 (10.0-20.0); Blood Urea Nitrogen 13 mg/dL (9-23); Calcium 9.2 mg/dL (8.7-10.4); Carbon Dioxide 23 mmol/L (20-30); Chloride 107 mmol/L (98-107); Glucose 86 mg/dL (74-106); Lipase 23 U/L (12-53); Potassium 4.5 mmol/L (3.5-5.1); Sodium 137 mmol/L (136-145)
[2023-08-14 16:34] LABS: Bilirubin, Total 0.4 mg/dL (0.2-1.0); Total Protein 7.4 g/dL (5.7-8.2)
[2023-08-14] MEDS ORDERED: ONDANSETRON ODT 4 MG TAB PO ONE (19:30)
[2023-08-14] MEDS ORDERED: MAALOX PLUS or MAALOX 30 ML PO ONE (19:30)
[2023-08-14 19:55] VITALS: BP 142/90
[2023-08-14 20:08] VITALS: TEMP 97.8
[2023-08-14] MEDS ORDERED: LACT10SO3 PO (21:42)
[2023-08-14] MEDS ORDERED: ZOFR4T PO (21:42)
[2023-08-14 21:59] VITALS: PULSE 60; RESP 16; O2SAT 98
== END 2023-08-14 22:00 | disposition home or self-care (01) ==
LOC: ER 13:21
DX: K59.00 Constipation, unspecified (principal); R11.15 Cyclical vomiting syndrome unrelated to migraine; I10 Essential (primary) hypertension; J44.9 Chronic obstructive pulmonary disease, unspecified; Z86.73 Personal history of transient ischemic attack (TIA), and cerebral infarction without residual deficits; Z87.442 Personal history of urinary calculi; Z98.890 Other specified postprocedural states; Z88.8 Allergy status to other drugs, medicaments and biological substances; Z79.899 Other long term (current) drug therapy
CPT/HCPCS: 36415; 74176; 80053; 83690; 85025; 99284; Q0162; 81001

== ENCOUNTER 2023-09-17 14:58 | Emergency (ER) | payer MEDICARE, MEDICAID ==
[~2023-09-17] VITALS: Ht 162.6 cm; Wt 64.3 kg
[~2023-09-17 14:58] MED LIST changes: +LACT10SO3 PO; +ZOFR4T PO
[2023-09-17 15:30] LABS: Urine Bacteria FEW /hpf (None Seen); Urine Blood Negative /uL (Negative); Urine Clarity HAZY (Clear); Urine Color Yellow (Yellow); Urine Protein, UAD Negative (Negative); Urine Specific Gravity 1.017 (1.001-1.035); Urine Urobilinogen Normal (Negative); Urine WBC 46 /hpf (0 - 3); Urine pH 5.5 (5.0-8.0)
[2023-09-17 15:53] LABS: Basophils # (auto) 0.1 10 ^3/uL (0-0.2); Basophils % (auto) 0.5 % (0.0-2.0); Eosinophils # (auto) 0.2 10 ^3/uL (0-0.8); Eosinophils % (auto) 1.6 % (0.0-7.0); Hematocrit 35.5 % (41.0-53.0); Hemoglobin 11.7 g/dL (13.5-17.5); Lymphocytes # (auto) 1.8 10 ^3/uL (0.4-5.4); Lymphocytes % (auto) 14.7 % (10.0-50.0); Mean Corpuscular Hemoglobin 32.8 pg (28.0-32.0); Mean Corpuscular Hgb Conc. 33.1 g/dL (32.0-36.0); Mean Corpuscular Volume 99.3 fL (80.0-100.0); Monocytes # (auto) 0.8 10 ^3/uL (0-1.3); Neutrophils # (auto) 9.1 10 ^3/uL (1.6-8.6); Neutrophils % (auto) 76.2 % (37.0-80.0); Red Blood Cells 3.57 10^6/uL (4.5-5.90); Red Cell Distribution Width 13.3 % (11.8-14.3)
[2023-09-17 16:12] LABS: Alanine Aminotransferase 14 U/L (7-40); Albumin 4.3 g/dL (3.2-4.8); Alkaline Phosphatase 67 U/L (46-116); Anion Gap 6 (5-15); Aspartate Aminotransferase 25 U/L (13-40); BUN/Creatinine Ratio 12.6 (10.0-20.0); Blood Urea Nitrogen 14 mg/dL (9-23); Calcium 9.2 mg/dL (8.5-10.1); Carbon Dioxide 26 mmol/L (20-30); Chloride 105 mmol/L (98-107); Glucose 84 mg/dL (74-106); Potassium 4.4 mmol/L (3.5-5.1); Sodium 137 mmol/L (136-145)
[2023-09-17 16:13] LABS: Bilirubin, Total 0.2 mg/dL (0.2-1.0); Total Protein 7.1 g/dL (5.7-8.2)
[2023-09-17 16:30] LABS: INR 0.98 (0.9-1.15); Partial Thromboplastin Time 27.6 SEC (24.5-34.5); Prothrombin Time 10.3 sec (9.3-11.8)
[2023-09-17] MEDS ORDERED: cefTRIAXone 1GM/50ML D5W 50 ML IV ONE (16:30)
[2023-09-17] MEDS ORDERED: cefTRIAXone SOD 1,000 MG VL IM ONE (17:45)
[2023-09-17 18:21] LABS: Lactic Acid w/Reflex 2.7 mmol/L (0.4-2.0)
[2023-09-17] MEDS ORDERED: CEPH500C PO (18:42)
[2023-09-17 19:28] VITALS: BP 135/79; PULSE 70; RESP 18; TEMP 99.1; O2SAT 98
== END 2023-09-17 19:29 | disposition home or self-care (01) ==
LOC: ER 14:58
DX: N10 Acute pyelonephritis (principal); I10 Essential (primary) hypertension; J44.9 Chronic obstructive pulmonary disease, unspecified; Z86.73 Personal history of transient ischemic attack (TIA), and cerebral infarction without residual deficits; Z90.49 Acquired absence of other specified parts of digestive tract; Z95.0 Presence of cardiac pacemaker; Z79.82 Long term (current) use of aspirin; Z79.2 Long term (current) use of antibiotics; Z79.899 Other long term (current) drug therapy; Z88.1 Allergy status to other antibiotic agents; Z88.8 Allergy status to other drugs, medicaments and biological substances
CPT/HCPCS: 36415; 74176; 80053; 81001; 83605; 85025; 85610; 85730; 87040; 96372; 99285; J0696

== ENCOUNTER 2023-12-18 19:45 | Emergency (ER) | payer MEDICARE, MEDICAID ==
[~2023-12-18] VITALS: Ht 162.6 cm; Wt 63.6 kg
[~2023-12-18 19:45] MED LIST changes: +CHLO100T12 PO; -CHLO100T8 PO; -MELO-335 PO; +MELO15TA29 PO; +SENN-213 PO; -SENN1TAB91 PO
[2023-12-18] MEDS: MORPHINE SULFATE 4 MG/ML SYR/VIAL IM ONE (20:26)
[2023-12-18 20:36] LABS: Urine Bacteria FEW /hpf (None Seen); Urine Blood TRACE /uL (Negative); Urine Clarity Turbid (Clear); Urine Color Light-Orange (Yellow); Urine Mucus FEW (None Seen); Urine Protein, UAD 1+ (Negative); Urine Specific Gravity 1.016 (1.001-1.035); Urine Urobilinogen Normal (Negative); Urine WBC 25 /hpf (0 - 3); Urine pH 8.5 (5.0-9.0)
[2023-12-18 20:46] LABS: Basophils # (auto) 0.1 10 ^3/uL (0-0.2); Basophils % (auto) 0.9 % (0.0-2.0); Eosinophils # (auto) 0 10 ^3/uL (0-0.8); Eosinophils % (auto) 0.3 % (0.0-7.0); Hematocrit 41.5 % (41.0-53.0); Hemoglobin 13.8 g/dL (13.5-17.5); Lymphocytes # (auto) 1.2 10 ^3/uL (0.4-5.4); Lymphocytes % (auto) 19.8 % (10.0-50.0); Mean Corpuscular Hemoglobin 33.1 pg (28.0-32.0); Mean Corpuscular Hgb Conc. 33.2 g/dL (32.0-36.0); Mean Corpuscular Volume 99.5 fL (80.0-100.0); Monocytes # (auto) 0.3 10 ^3/uL (0-1.3); Monocytes % (auto) 4.5 % (0.0-12.0); Neutrophils # (auto) 4.5 10 ^3/uL (1.6-8.6); Neutrophils % (auto) 74.5 % (37.0-80.0); Nucleated Red Blood Cells % 0.1 %; Red Blood Cells 4.17 10^6/uL (4.5-5.90); Red Cell Distribution Width 14.3 % (11.8-14.3); White Blood Cell 6.1 10^3/uL (4.4-10.8)
[2023-12-18 20:49] LABS: Chloride 107 mmol/L (98-107); Potassium 4.7 mmol/L (3.5-5.1); Sodium 140 mmol/L (136-145)
[2023-12-18 20:50] LABS: Anion Gap 8 (5-15); Carbon Dioxide 25 mmol/L (20-30)
[2023-12-18 20:51] LABS: Calcium 10.2 mg/dL (8.5-10.1)
[2023-12-18 20:56] LABS: BUN/Creatinine Ratio 12.8 (10.0-20.0); Blood Urea Nitrogen 16 mg/dL (9-23); Glucose 102 mg/dL (74-106)
[2023-12-18 22:50] VITALS: TEMP 97.7
[2023-12-18] MEDS ORDERED: CEPH500C PO (22:50)
[2023-12-18 22:58] VITALS: PULSE 109; RESP 14; O2SAT 100
[2023-12-18 23:15] VITALS: BP 126/89; PULSE 109; RESP 14; O2SAT 96
== END 2023-12-18 23:12 | disposition home or self-care (01) ==
LOC: ER 19:45
DX: N39.0 Urinary tract infection, site not specified (principal); R10.9 Unspecified abdominal pain; I10 Essential (primary) hypertension; J44.9 Chronic obstructive pulmonary disease, unspecified; Z86.73 Personal history of transient ischemic attack (TIA), and cerebral infarction without residual deficits; Z87.442 Personal history of urinary calculi; Z98.890 Other specified postprocedural states; Z59.00 Homelessness unspecified; Z88.8 Allergy status to other drugs, medicaments and biological substances; Z79.899 Other long term (current) drug therapy
CPT/HCPCS: 36415; 74176; 80048; 81001; 85025; 96372; 99285; J2270

== ENCOUNTER 2024-02-22 07:17 | Day surgery (SDC) | payer MEDICARE, MEDICAID ==
[2024-02-18 11:39] LABS: Urine Bacteria None Seen /hpf (None Seen)
[2024-02-18 11:44] LABS: Basophils # (auto) 0.1 10 ^3/uL (0-0.2); Basophils % (auto) 1.2 % (0.0-2.0); Eosinophils # (auto) 0.3 10 ^3/uL (0-0.8); Eosinophils % (auto) 4.2 % (0.0-7.0); Hematocrit 40.2 % (41.0-53.0); Hemoglobin 13.6 g/dL (13.5-17.5); Lymphocytes # (auto) 2.2 10 ^3/uL (0.4-5.4); Lymphocytes % (auto) 32.7 % (10.0-50.0); Mean Corpuscular Hemoglobin 32.9 pg (28.0-32.0); Mean Corpuscular Hgb Conc. 33.8 g/dL (32.0-36.0); Mean Corpuscular Volume 97.4 fL (80.0-100.0); Monocytes # (auto) 0.5 10 ^3/uL (0-1.3); Monocytes % (auto) 7.9 % (0.0-12.0); Neutrophils # (auto) 3.6 10 ^3/uL (1.6-8.6); Red Blood Cells 4.13 10^6/uL (4.5-5.90); Red Cell Distribution Width 13.6 % (11.8-14.3); White Blood Cell 6.6 10^3/uL (4.4-10.8)
[2024-02-18 11:45] LABS: Urine Blood TRACE /uL (Negative); Urine Clarity Turbid (Clear); Urine Color Yellow (Yellow); Urine Mucus FEW (None Seen); Urine Protein, UAD 1+ (Negative); Urine Specific Gravity 1.022 (1.001-1.035); Urine Urobilinogen Normal (Negative); Urine WBC 29 /hpf (0 - 3); Urine pH 5.5 (5.0-9.0)
[2024-02-18 12:09] LABS: Chloride 108 mmol/L (98-107); Sodium 139 mmol/L (136-145)
[2024-02-18 12:10] LABS: Anion Gap 5 (5-15); Carbon Dioxide 26 mmol/L (20-30)
[2024-02-18 12:11] LABS: Calcium 9.7 mg/dL (8.7-10.4)
[2024-02-18 12:15] LABS: BUN/Creatinine Ratio 16.9 (10.0-20.0); Blood Urea Nitrogen 14 mg/dL (9-23); Glucose 89 mg/dL (74-106)
[2024-02-18 13:04] LABS: INR 1.01 (0.9-1.15); Partial Thromboplastin Time 26.7 SEC (24.5-34.5); Prothrombin Time 10.7 sec (9.3-11.8)
[~2024-02-22] VITALS: Ht 162.6 cm; Wt 63.5 kg
[2024-02-22] VITALS (8 sets, daily range): BP systolic 96–125; BP diastolic 63–83; PULSE 60–65; RESP 12–16; TEMP 97.8; O2SAT 91–97
[~2024-02-22 07:17] MED LIST changes: -ACET500T58 PO; +ALBUAER3 IN; +APIX5TAB PO; -CEPH500C PO; -FLUT1AER3 IN; -HYDR-4902 PO; -LACT10SO3 PO; +MECL-90 PO; -METH-1182 PO; -ONDA-144 PO; +PRAV20TA3 PO; -PRAZ2CAP PO; +PRAZ2CAP2 PO; -PROM25TA10 PO; -SENN-213 PO; +SENN-58 PO; -SERT-377 PO; +SERT100T PO; -SUVO1TAB2 PO; -VALB40CA2 PO; -ZOLP10TA PO
[2024-02-22] MEDS ORDERED: LIDOCAINE 2%HCL (LOCAL ANESTH.) INJ 20ML MDV ONE (07:34)
[2024-02-22] MEDS ORDERED: IODIXANOL 320MG/ML 100ML BTL IV ONE (07:34)
[2024-02-22] MEDS ORDERED: HEPARIN IN NS 1000Units/500mL 1,500 ML ONE (07:34)
[2024-02-22] MEDS ORDERED: HEPARIN SODIUM (PORCINE) 5000 UNITS/ML 1ML VIAL ONE (07:42)
[2024-02-22] MEDS ORDERED: fentaNYL CITRATE 100 MCG/2 ML VL ONE (07:42)
[2024-02-22] MEDS ORDERED: ANGIOMAX 250 MG VIAL IV ONE (07:42)
[2024-02-22] MEDS ORDERED: VERAPAMIL 2.5MG/ML INJ 2ML VIAL IV ONE (07:42)
[2024-02-22] MEDS ORDERED: MIDAZOLAM HCL 2MG/2ML 2ml VIAL (1mg/ml) ONE (07:42)
[2024-02-22] MEDS ORDERED: SODIUM CHL 0.9% 0 ML ONE (07:43)
== END 2024-02-22 11:14 | disposition home or self-care (01) ==
LOC: CATH 07:17
PROVIDERS: ATTEND Internal Medicine Cardiovascular Disease
DX: R06.09 Other forms of dyspnea (principal); R94.39 Abnormal result of other cardiovascular function study; J44.9 Chronic obstructive pulmonary disease, unspecified; I48.91 Unspecified atrial fibrillation; I73.9 Peripheral vascular disease, unspecified; F17.210 Nicotine dependence, cigarettes, uncomplicated; F32.A Depression, unspecified; F41.9 Anxiety disorder, unspecified; Z95.0 Presence of cardiac pacemaker; Z87.442 Personal history of urinary calculi; Z93.6 Other artificial openings of urinary tract status; Z93.3 Colostomy status; Z90.89 Acquired absence of other organs; Z88.6 Allergy status to analgesic agent; Z88.1 Allergy status to other antibiotic agents; Z88.8 Allergy status to other drugs, medicaments and biological substances; Z79.82 Long term (current) use of aspirin; Z79.899 Other long term (current) drug therapy; Z98.890 Other specified postprocedural states
CPT/HCPCS: 36415; 80048; 81001; 85025; 85610; 85730; 93458; C1894; J1644; J2250; J3010; J7030; Q9967; 99152

== ENCOUNTER 2024-02-28 06:01 | Emergency (ER) | payer MEDICARE, MEDICAID ==
[~2024-02-28] VITALS: Ht 170.2 cm; Wt 63.0 kg
[~2024-02-28 06:01] MED LIST changes: +CIPR-173 PO
[2024-02-28 07:45] VITALS: BP 122/84; PULSE 88; RESP 17; TEMP 98.6; O2SAT 98
[2024-02-28 08:26] LABS: Basophils # (auto) 0.1 10 ^3/uL (0-0.2); Basophils % (auto) 0.7 % (0.0-2.0); Eosinophils # (auto) 0 10 ^3/uL (0-0.8); Eosinophils % (auto) 0.1 % (0.0-7.0); Hematocrit 41.1 % (41.0-53.0); Hemoglobin 14.1 g/dL (13.5-17.5); Lymphocytes # (auto) 1.8 10 ^3/uL (0.4-5.4); Lymphocytes % (auto) 14.8 % (10.0-50.0); Mean Corpuscular Hgb Conc. 34.3 g/dL (32.0-36.0); Mean Corpuscular Volume 96.2 fL (80.0-100.0); Monocytes # (auto) 0.8 10 ^3/uL (0-1.3); Monocytes % (auto) 6.8 % (0.0-12.0); Neutrophils # (auto) 9.7 10 ^3/uL (1.6-8.6); Neutrophils % (auto) 77.6 % (37.0-80.0); Red Blood Cells 4.27 10^6/uL (4.5-5.90); Red Cell Distribution Width 14.2 % (11.8-14.3); White Blood Cell 12.5 10^3/uL (4.4-10.8)
[2024-02-28 08:39] LABS: Chloride 110 mmol/L (98-107); Potassium 4.1 mmol/L (3.5-5.1); Sodium 141 mmol/L (136-145)
[2024-02-28 08:40] LABS: Anion Gap 11 (5-15); Calcium 9.5 mg/dL (8.7-10.4); Carbon Dioxide 20 mmol/L (20-30)
[2024-02-28 08:45] LABS: BUN/Creatinine Ratio 25.9 (10.0-20.0); Blood Urea Nitrogen 37 mg/dL (9-23); Glucose 92 mg/dL (74-106)
== END 2024-02-28 09:27 | disposition home or self-care (01) ==
LOC: EDBD 06:01 → ER 06:01
DX: R25.1 Tremor, unspecified (principal); J44.9 Chronic obstructive pulmonary disease, unspecified; I10 Essential (primary) hypertension; R56.9 Unspecified convulsions; Z86.73 Personal history of transient ischemic attack (TIA), and cerebral infarction without residual deficits; Z87.442 Personal history of urinary calculi; Z90.49 Acquired absence of other specified parts of digestive tract; Z98.61 Coronary angioplasty status; Z88.1 Allergy status to other antibiotic agents; Z88.6 Allergy status to analgesic agent; Z59.00 Homelessness unspecified
CPT/HCPCS: 36415; 80048; 85025; 93005

== ENCOUNTER → 2024-07-05 | Day surgery (SDC) | payer MEDICARE, MEDICAID ==
[2024-07-03 15:00] LABS: Basophils # (auto) 0 10 ^3/uL (0-0.2); Basophils % (auto) 0.5 % (0.0-2.0); Eosinophils # (auto) 0.1 10 ^3/uL (0-0.8); Hematocrit 42.9 % (41.0-53.0); Hemoglobin 14.6 g/dL (13.5-17.5); Lymphocytes # (auto) 1.3 10 ^3/uL (0.4-5.4); Lymphocytes % (auto) 19.1 % (10.0-50.0); Mean Corpuscular Hemoglobin 33.5 pg (28.0-32.0); Mean Corpuscular Hgb Conc. 33.9 g/dL (32.0-36.0); Mean Corpuscular Volume 98.6 fL (80.0-100.0); Monocytes # (auto) 0.3 10 ^3/uL (0-1.3); Neutrophils # (auto) 4.9 10 ^3/uL (1.6-8.6); Neutrophils % (auto) 74.4 % (37.0-80.0); Platelet Count (auto) 333 10^3/uL (140-450); Red Blood Cells 4.36 10^6/uL (4.5-5.90); Red Cell Distribution Width 14.5 % (11.8-14.3); White Blood Cell 6.6 10^3/uL (4.4-10.8)
[2024-07-03 15:24] LABS: INR 0.99 (0.9-1.15); Partial Thromboplastin Time 29.4 SEC (24.5-34.5); Prothrombin Time 10.5 sec (9.3-11.8)
[2024-07-03 15:39] LABS: Alanine Aminotransferase 22 U/L (7-40); Albumin 4.7 g/dL (3.2-4.8); Alkaline Phosphatase 81 U/L (46-116); Anion Gap 6 (5-15); Aspartate Aminotransferase 20 U/L (13-40); BUN/Creatinine Ratio 19.1 (10.0-20.0); Bilirubin, Total 0.4 mg/dL (0.2-1.0); Blood Urea Nitrogen 18 mg/dL (9-23); Calcium 10.1 mg/dL (8.7-10.4); Carbon Dioxide 28 mmol/L (20-31); Chloride 107 mmol/L (98-107); Glucose 102 mg/dL (74-106); Potassium 4.2 mmol/L (3.5-5.1); Sodium 141 mmol/L (136-145)
[2024-07-03 15:44] LABS: Urine Amorphous Crystal FEW /hpf (None Seen); Urine Bacteria FEW /hpf (None Seen); Urine Blood Negative /uL (Negative); Urine Clarity Ex.Turbid (Clear); Urine Color Light-Orange (Yellow); Urine Mucus FEW (None Seen); Urine Protein, UAD 1+ (Negative); Urine Specific Gravity 1.016 (1.001-1.035); Urine Urobilinogen Normal (Negative); Urine WBC 63 /hpf (0 - 3); Urine pH 8.5 (5.0-9.0)
[~2024-07-05] VITALS: Ht 162.6 cm; Wt 59.0 kg
[~2024-07-05] MED LIST changes: -AMOX875T4 PO; -ASPI1TAB20 PO; +CARB200T2 PO; -CIPR-173 PO; +DexAMETHasone SOD PHOS 10MG/1ML VIAL INJ ONE; +FER325T PO; +FOLI-119 PO; +HYDROmorphone HCL 2 MG/ML VL/or syr IV PRN; -MECL-90 PO; +MEPERIDINE HCL (25 MG/ML) 1ML VIAL ONE; +METOCLOPRAMIDE HCL 5MG/ml INJ 2ml VIAL IV ONE; +MIDAZOLAM HCL 2MG/2ML 2ml VIAL (1mg/ml) IV PRN; +MIDAZOLAM HCL 2MG/2ML 2ml VIAL (1mg/ml) ONE; +MORPHINE SULFATE 4 MG/ML SYR/VIAL IV PRN; +ONDANSETRON HCL 4 MG/2 ML VIAL IV ONE; +ONDANSETRON HCL 4 MG/2 ML VIAL ONE; +PROPOFOL 10 MG/ML 20 ML IV ONE; +ceFAZolin 2 GM/D5W100ml 100 ML IV ONE; +ePHEDrine SULFATE 50 MG/ML AMP IV PRN; +fentaNYL CITRATE 100 MCG/2 ML VL ONE; +hydrALAZINE HCL 20 MG/ML VL IV PRN
[2024-07-05] MEDS: ONDANSETRON HCL 4 MG/2 ML VIAL IV ONE (12:00)
--- NOTE | 2024-07-05 14:37 | DVHOP2 ---
Operative Report - 2 Report Details Date: 07/05/24 Preop Diagnosis: 1. Left foot 4th hammer toe 2. Left foot pain Postop Diagnosis: Same as preop Surgeon: Paxton Phan MD Anesthesiologist: See anesthesia Anesthesia: Mac Consent: The patient was informed of the risks and benefits of the procedure. These include but are not limited to complications of anesthesia, postoperative infection, incomplete relief of symptoms, recurrence of symptoms, damage to blood vessels, nerves and tendons, deep venous thrombosis, pulmonary embolism and possible need for repeat surgery in the future. Complications: None Estimated Blood Loss: Minimal Fluids: See anesthesia Findings: Consistent with diagnosis Indications for Surgery: Worsening left foot pain Name of Procedure Performed 1. Left foot 4th toe amputation (61069) Procedure Details Procedure Details: PRE-PROCEDURE INFORMATION: In the pre-op holding area, the extremity to be operated on was clearly marked and the patient verified correct laterality of the marking. The patient was transferred to the OR table and placed in a supine position. A timeout was performed in which identification of the correct patient, procedure, location, and materials was done. The left foot and leg were prepped and draped in normal sterile fashion. DESCRIPTION OF PROCEDURE: Attention was directed to the left floor digit where a fish mouth type incision was made about the DIPJ of the digit. This incision enveloped the ulceration that was on the distal tip of the digit and allowed adequate coverage of the remaining bone for flap closure. This incision was deepened to the level of the bone and utilizing sharp dissection, the distal aspect of the digit was removed at the distal interphalangeal joint level. Is a 1 L of saline, the wound was then flushed. The incision was then closed with 2- 0 nylon. All surgical wounds were irrigated copiously with saline and closed in layers with the aforementioned suture material. A dry sterile dressing was placed on the surgical extremity. The patient was placed in a postop shoe POSTOPERATIVE INFORMATION: The patient tolerated the above noted procedure and anesthesia well and was transferred to the PACU with vital signs stable, and vascular status intact with capillary refill intact to all digits. Postoperative instructions reviewed in detail with the patient with written instructions provided. Patient will return to clinic in approximately 10-14 days for first postoperative visit. Patient has the number of the clinic and was instructed to call prior to that time should any problems, questions, or concerns arise. Condition Good Disposition Home PAXTON PHAN DPM Jul 05, 2024 14:37
[2024-07-05 14:46] VITALS: PULSE 60; RESP 12; TEMP 98.8; O2SAT 100
[2024-07-05 15:15] VITALS: BP 130/84; PULSE 61; RESP 13; O2SAT 95
== END | disposition home or self-care (01) ==
LOC: SUR 10:39
PROVIDERS: ATTEND Podiatrist
DX: M79.672 Pain in left foot (principal); B35.1 Tinea unguium; M20.42 Other hammer toe(s) (acquired), left foot; I10 Essential (primary) hypertension; E03.9 Hypothyroidism, unspecified; Z95.0 Presence of cardiac pacemaker; F17.200 Nicotine dependence, unspecified, uncomplicated; Z79.899 Other long term (current) drug therapy; Z98.890 Other specified postprocedural states
CPT/HCPCS: 28825; 36415; 80053; 81001; 85025; 85610; 85730; J1100; J2175; J2250; J2405; J2704; J3010

== ENCOUNTER 2025-06-04 10:58 | Day surgery (SDC) | payer MEDICARE, MEDICAID ==
[2025-05-29 10:52] LABS: Hematocrit 37.4 % (41.0-53.0); Hemoglobin 12.6 g/dL (13.5-17.5); Mean Corpuscular Hemoglobin 33.6 pg (28.0-32.0); Mean Corpuscular Volume 99.5 fL (80.0-100.0); Nucleated Red Blood Cells % 0.0 %
[2025-05-29 11:10] LABS: INR 0.94 (0.9-1.15); Partial Thromboplastin Time 28.8 SEC (24.5-34.5); Prothrombin Time 10.0 sec (9.3-11.8)
[2025-05-29 11:24] LABS: Urine Protein, UAD Negative (Negative)
[2025-05-29 11:34] LABS: Alanine Aminotransferase 21 U/L (7-40); Alkaline Phosphatase 79 U/L (46-116); Calcium 9.0 mg/dL (8.7-10.4); Carbon Dioxide 28 mmol/L (20-31); Chloride 100 mmol/L (98-107); Glucose 79 mg/dL (74-106); Potassium 4.5 mmol/L (3.5-5.1)
[2025-05-29 11:35] LABS: Albumin 4.4 g/dL (3.2-4.8); Anion Gap 10 (5-15); BUN/Creatinine Ratio 21.7 (10.0-20.0); Blood Urea Nitrogen 20 mg/dL (9-23); Sodium 138 mmol/L (136-145); Total Protein 7.3 g/dL (5.7-8.2)
[2025-05-29 11:36] LABS: Bilirubin, Total 0.2 mg/dL (0.2-1.0)
[~2025-06-04 10:58] MED LIST changes: -DexAMETHasone SOD PHOS 10MG/1ML VIAL INJ ONE; -HYDROmorphone HCL 2 MG/ML VL/or syr IV PRN; -MEPERIDINE HCL (25 MG/ML) 1ML VIAL ONE; -METOCLOPRAMIDE HCL 5MG/ml INJ 2ml VIAL IV ONE; -MIDAZOLAM HCL 2MG/2ML 2ml VIAL (1mg/ml) IV PRN; -MIDAZOLAM HCL 2MG/2ML 2ml VIAL (1mg/ml) ONE; -MORPHINE SULFATE 4 MG/ML SYR/VIAL IV PRN; -ONDANSETRON HCL 4 MG/2 ML VIAL IV ONE; -ONDANSETRON HCL 4 MG/2 ML VIAL ONE; -PROPOFOL 10 MG/ML 20 ML IV ONE; -ceFAZolin 2 GM/D5W100ml 100 ML IV ONE; -ePHEDrine SULFATE 50 MG/ML AMP IV PRN; -fentaNYL CITRATE 100 MCG/2 ML VL ONE; -hydrALAZINE HCL 20 MG/ML VL IV PRN
[2025-06-04] MEDS ORDERED: ceFAZolin 2 GM/D5W50ml 50 ML IV ONE (11:01)
[2025-06-04] MEDS ORDERED: BUPIVACAINE 0.5% P/F INJ 10 ML VIAL ONE (11:43)
[2025-06-04] MEDS ORDERED: LIDOCAINE 2% (LOCAL ANESTH.) PF 5ml SDV ONE (12:18)
[2025-06-04] MEDS ORDERED: fentaNYL CITRATE 100 MCG/2 ML VL ONE (12:18)
[2025-06-04] MEDS ORDERED: METOCLOPRAMIDE HCL 5MG/ml INJ 2ml VIAL ONE (12:18)
[2025-06-04] MEDS ORDERED: MIDAZOLAM HCL 2MG/2ML 2ml VIAL (1mg/ml) ONE (12:18)
[2025-06-04] MEDS ORDERED: ONDANSETRON HCL 4 MG/2 ML VIAL ONE (12:18)
[2025-06-04] MEDS ORDERED: PROPOFOL 10 MG/ML 20 ML IV ONE (12:19)
[2025-06-04] MEDS: LIDOCAINE 1% HCL (LOCAL ANESTH.) INJ 20ML MDV ONE (12:28)
[2025-06-04 12:40] VITALS: PULSE 66; RESP 14; TEMP 97.5; O2SAT 98
--- NOTE | 2025-06-04 12:40 | DVHOP2 ---
Operative Report - 2 Report Details Date: 06/04/25 Preop Diagnosis: 1. Right foot exostosis 2. Right foot hammer toe 3. Left foot metatarsalgia 4. Left foot callus 5. Bilteral foot pain Postop Diagnosis: Same as preop Surgeon: Paxton Phan MD Anesthesiologist: See anesthesia Anesthesia: Mac Consent: The patient was informed of the risks and benefits of the procedure. These include but are not limited to complications of anesthesia, postoperative infection, incomplete relief of symptoms, recurrence of symptoms, damage to blood vessels, nerves and tendons, deep venous thrombosis, pulmonary embolism and possible need for repeat surgery in the future. Complications: None Estimated Blood Loss: Minimal Fluids: See anesthesia Findings: Consistent with the diagnosis Indications for Surgery: Worsening foot pain Name of Procedure Performed 1. Right hallux exostectomy (87152) 2. Right second hammer toe flexor tenotomy (01556) 3. Left 2nd metatarsal mikey osteotomy (75172) 4. Left 3rd metatarsal mikey osteotomy (89707) Procedure Details Procedure Details: PRE-PROCEDURE INFORMATION: In the pre-op holding area, the extremity to be operated on was clearly marked and the patient verified correct laterality of the marking. The patient was transferred to the OR table and placed in a supine position. A timeout was performed in which identification of the correct patient, procedure, location, and materials was done. The bilateral foot and leg were prepped and draped in normal sterile fashion. DESCRIPTION OF PROCEDURE: Attention was directed to the left 2nd metatarsal head where a stab incision was made. The incision was deepened through blunt and sharp dissection. Care was taken to avoid damage to neurovascular structures throughout dissection. Incision was carried to the level of the 2nd metatarsal head, it was noted there was significant plantar flexion of the metatarsal head. Using an MIS bur, the an osteotomy was performed across the neck of the metatarsal head. The metatarsal head was then able to float. It was noted off intraoperative fluoroscopy, there was significant reduction deformity. Attention was directed to the left 3nd metatarsal head where a stab incision was made. The incision was deepened through blunt and sharp dissection. Care was taken to avoid damage to neurovascular structures throughout dissection. Incision was carried to the level of the 3rd metatarsal head, it was noted there was significant plantar flexion of the metatarsal head. Using an MIS bur, the an osteotomy was performed across the neck of the metatarsal head. The metatarsal head was then able to float. It was noted off intraoperative fluoroscopy, there was significant reduction deformity. Attention was directed to the right 2nd toe where using a 18 gauge needle, the toe was extended and a sweeping motion was made on the FDL. It was noted that the contracture of the digit was then relieved after the flexor tendon was released. The stab incision was then closed with Dermabond. Attention was directed to the right 1st digit where the exostosis was located. A stab incision was made just medial to the 1st digit. The incision was deepened through blunt and sharp dissection. Care was taken to avoid any neurovascular and tendinous structures. Using the Arthrex MIS bur, the exostosis was then removed in its entirety. After the bur was used the exostosis was no longer felt clinically. The incision was closed with a 4-0 nylon. All surgical wounds were irrigated copiously with saline and closed in layers with the aforementioned suture material. A dry sterile dressing was placed on the surgical extremity. The patient was placed in a postop shoe POSTOPERATIVE INFORMATION: The patient tolerated the above noted procedure and anesthesia well and was transferred to the PACU with vital signs stable, and vascular status intact with capillary refill intact to all digits. Postoperative instructions reviewed in detail with the patient with written instructions provided. Patient will return to clinic in approximately 10-14 days for first postoperative visit. Patient has the number of the clinic and was instructed to call prior to that time should any problems, questions, or concerns arise. Condition Good Disposition Home Visit Coding Podiatry Date of Service if different f: Jun 04, 2025 Billing Provider: PAXTON PHAN DPM Podiatry Common Visit Codes: PROCEDURE ONLY PAXTON PHAN DPM Jun 04, 2025 12:39
[2025-06-04] MEDS ORDERED: HYDROmorphone HCL 2 MG/ML VL/or syr ONE (12:56)
[2025-06-04] MEDS ORDERED: METOCLOPRAMIDE HCL 5MG/ml INJ 2ml VIAL IV PRN (13:00)
[2025-06-04] MEDS ORDERED: ONDANSETRON HCL 4 MG/2 ML VIAL IV PRN (13:00)
[2025-06-04] MEDS ORDERED: KETOROLAC TROMETH 30 MG/ML 1ML VIAL IV ONE (13:00)
[2025-06-04] MEDS: HYDROmorphone HCL 2 MG/ML VL/or syr IV PRN (13:01)
[2025-06-04 13:46] VITALS: BP 111/77; PULSE 60; RESP 13; O2SAT 95
== END 2025-06-04 14:30 | disposition home or self-care (01) ==
LOC: SUR 10:58
PROVIDERS: ATTEND Podiatrist
DX: M20.41 Other hammer toe(s) (acquired), right foot (principal); M77.42 Metatarsalgia, left foot; L84 Corns and callosities; M89.9 Disorder of bone, unspecified; E03.9 Hypothyroidism, unspecified; Z98.890 Other specified postprocedural states; Z79.899 Other long term (current) drug therapy
CPT/HCPCS: 28010; 28104; 28308; 36415; 80053; 81001; 85025; 85610; 85730; J0690; J1171; J2003; J2250; J2405; J2704; J2765; J3010; J3490